=== PATIENT | female | born 1975 | race Caucasian/White ===

== ENCOUNTER 2019-11-17 16:45 | Emergency (ER) | payer OTHER ==
[~2019-11-17] VITALS: Ht 154.9 cm; Wt 99.8 kg
--- NOTE | 2019-11-17 17:06 | NUR ---
Patient presents to ER with c/o of Lt arm pain. Per patient states she fell rollerskating onto her Lt arm. Pt denies numbness and tingling but states she is unable to move it. Noted abrasion to Lt elbow. Patient in no acute distress.
--- NOTE | 2019-11-17 17:09 | NUR ---
Dr. Quispe at bedside examining patient.
[2019-11-17] MEDS ORDERED: HYDROCODONE/APAP 10-325 MG TABLET PO ONE (17:30)
[2019-11-17] MEDS ORDERED: HYDROCODONE/APAP 10-325 MG TABLET ONE (17:34)
--- NOTE | 2019-11-17 17:38 | NUR ---
Per Dr. Quispe, patient stable for discharge. [place] give for pain prior to discharge, patient is not driving. DC instructions and prescriptions given and reviewed with patient. Verbalized understanding. Left ER in stable condition.
== END 2019-11-17 17:39 | disposition home or self-care (01) ==
LOC: ER 16:49
DX: S42.202A Unspecified fracture of upper end of left humerus, initial encounter for closed fracture (principal); J45.909 Unspecified asthma, uncomplicated; Z79.899 Other long term (current) drug therapy; W18.39XA Other fall on same level, initial encounter; Y93.21 Activity, ice skating; Y92.89 Other specified places as the place of occurrence of the external cause; Y99.8 Other external cause status
CPT/HCPCS: 73060; A4663